=== PATIENT | male | born 1975 | race Caucasian/White ===

== ENCOUNTER 2017-04-30 00:18 | Inpatient (IN) | payer MEDICAID ==
[~2017-04-30] VITALS: Ht 177.8 cm; Wt 84.8 kg
[2017-04-30] VITALS (11 sets, daily range): BP systolic 114–161; BP diastolic 81–111
[2017-04-30] MEDS ORDERED: IV NORMAL SALINE 500 ML BAG IV ONE (00:30)
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
[2017-04-30 00:52] LABS: BASOPHILS % (AUTO) 0.6 % (0.0-2.0); EOSINOPHILS # (AUTO) 0.2 K/uL (0.0-0.7); EOSINOPHILS % (AUTO) 2.8 % (0.0-7.0); HEMATOCRIT 44.3 % (40-50); HEMOGLOBIN 14.9 G/DL (14.0-18.0); LYMPHOCYTES # (AUTO) 2.3 K/UL (0.8-4.8); LYMPHOCYTES % (AUTO) 30.9 % (20.5-51.5); MEAN CORPUSCULAR HEMOGLOBIN 29.6 UUG (27.0-31.0); MEAN CORPUSCULAR HGB CONC 34 g/dL (32.0-37.0); MEAN CORPUSCULAR VOLUME 87.6 FL (82.0-92.0); MONOCYTES # (AUTO) 0.5 K/UL (0.1-1.30); MONOCYTES % (AUTO) 6.6 % (0.0-11.0); NEUTROPHILS # (AUTO) 4.5 K/UL (1.8-8.9); NEUTROPHILS % (AUTO) 59.1 % (38.5-71.5); PLATELET COUNT (AUTO) 290 K/UL (150-450); RED BLOOD CELL COUNT(AUTO) 5.05 MIL/UL (4.7-6.1); WHITE BLOOD COUNT (AUTO) 7.5 K/UL (4.0-11.2)
[2017-04-30 00:52] LABS: *BILIRUBIN,URIN NEGATIVE (NEGATIVE); *BLOOD, URINE NEGATIVE (NEGATIVE); *CLARITY,URINE CLEAR (CLEAR); *COLOR,URINE DARK YELLOW (YELLOW); *KETONES,URINE NEGATIVE (NEGATIVE); *PROTEIN,URINE TRACE (NEGATIVE); *UROBILINOGEN,URINE 0.2 E.U./dl (NORMAL); LEUKOCYTE ESTERASE ,URINE NEGATIVE (NEGATIVE); NITRITE, URINE NEGATIVE (NEGATIVE); PH,URINE 5.5 (5.0-8.0); UGLUCOSE NEGATIVE (NEGATIVE)
[2017-04-30 00:53] LABS: CARBON DIOXIDE 31 mmol/L (21-32); CHLORIDE 106 mmol/L (98-107); CREATININE 1.2 mg/dL (0.6-1.3); GLUCOSE 110 mg/dL (74-106); POTASSIUM 3.3 mmol/L (3.5-5.1); UREA NITROGEN, BLOOD 14 mg/dL (7-18)
[2017-04-30 00:56] LABS: *AMPHETAMINE, URINE POSITIVE (NEGATIVE); *BARBITURATE, URINE NEGATIVE (NEGATIVE); *CANNABINOID, URINE POSITIVE (NEGATIVE); *COCCAINE, URINE NEGATIVE (NEGATIVE); *OPIATE, URINE NEGATIVE (NEGATIVE); *PHENCYCLIDINE SCREEN,URINE NEGATIVE (NEGATIVE)
[2017-04-30 01:00] LABS: ALANINE AMINOTRANSFERASE 31 U/L (16-63); ALKALINE PHOSPHATASE 86 U/L (50-136); ASPARTATE AMINOTRANSFERASE 25 U/L (15-37); BILIRUBIN,DIRECT 0.1 mg/dL (0.0-0.2); BILIRUBIN,TOTAL 0.5 mg/dL (0.2-1.0); TOTAL PROTEIN, SERUM 7.5 g/dL (6.4-8.2)
[2017-04-30] MEDS ORDERED: NALOXONE HCL 0.4 MG/ML AMPUL IV ONE (01:00)
[2017-04-30 01:01] LABS: BACTERIA,URINE MODERATE /HPF (NONE SEEN); MUCUS,URINE MODERATE /LPF (0-FEW); RBC,URINE 0-3 /HPF (0-3); SQUAMOUS EPITHELIAL CELL,UR MODERATE /HPF (NONE SEEN); WBC,URINE 0-3 /HPF (0-3)
[2017-04-30 01:02] LABS: ACETAMINOPHEN < 2.0 ug/mL (10-30)
[2017-04-30 01:04] LABS: ETHANOL < 3 MG/DL (0-0)
[2017-04-30] MEDS ORDERED: NALOXONE HCL 0.4 MG/ML AMPUL ONE (01:08)
--- NOTE | 2017-04-30 01:08 | NUR ---
Pt returned from CT via gurney. Pt remains unresponsive. IV established by EMS infiltrated and removed. Two new IVs established, refer to IV documentation. Airway remains patent. NSR on monitor. Awaiting results.
[2017-04-30] MEDS ORDERED: HYDROCODONE/APAP 5-325MG TABLET PO PRN (01:30)
[2017-04-30] MEDS ORDERED: ONDANSETRON 4 MG/2 ML VIAL IV PRN (01:30)
[2017-04-30] MEDS ORDERED: Z GUARD REMEDY PASTE 57 GM TUBE TOP PRN (01:30)
[2017-04-30] MEDS ORDERED: ASPIRIN 300 MG RECTAL SUPP RC ONE ×2 (01:30→01:35)
[2017-04-30] MEDS ORDERED: MAGNESIUM HYDROXIDE 30 ML LIQUID UDC PO PRN (01:30)
[2017-04-30] MEDS ORDERED: ACETAMINOPHEN 325 MG TABLET PO PRN (01:30)
--- NOTE | 2017-04-30 02:30 | NUR ---
Admitted a 41 years old male patient from ER via [facility] with DX: Altered Mental Status and Overdose. Doesn't open eyes to name or painful stimuli. Able to turn self to side and and said "cold." Assessment completed. See flow sheet for details. Addendum: 04/30/17 at 0343 by JEFFREY BURLESON RN Amended: Links added.
--- NOTE | 2017-04-30 03:00 | NUR ---
Warm blankets provided. BP diastole above 100. RR 8-10 but sat 99-100% on room air.
--- NOTE | 2017-04-30 03:15 | NUR ---
All of information re: PMH and nursing assessment are unobtainable due to patient's altered mentation. Will update when able.
--- NOTE | 2017-04-30 03:15 | NUR ---
Dr. Debi hargrove. Informed of patient's BP and respiratory status. Order received. Addendum: 04/30/17 at 0346 by JEFFREY BURLESON RN Amended: Links added.
[2017-04-30] MEDS: IV NS 1000 ML 1,000 ML IV PRN ×2 (03:26→12:29)
--- NOTE | 2017-04-30 04:30 | NUR ---
Patient woke up and very confused when attempted to check temperature rectally. Patient reoriented. Appears to have no recollection of the event. Denies suicidal thoughts. Addendum: 04/30/17 at 0523 by JEFFREY BURLESON RN Amended: Links added.
--- NOTE | 2017-04-30 05:00 | NUR ---
Discussed with patient current plan of care. Patient claims he uses these drugs on and off. Now slowly remembering what happened. NAD noted. Cooperative. Patient states he is not suicidal. Addendum: 04/30/17 at 0526 by JEFFREY BURLESON RN Amended: Links added.
--- NOTE | 2017-04-30 05:30 | NUR ---
Attempted to update medical history but patient is difficult to arouse again. Eupneic. No EKG changes.
[2017-04-30] MEDS ORDERED: BLOOD SUGAR DIAGNOSTIC 1 EACH STRIP VI SCH ×2 (06:00→16:30)
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
--- NOTE | 2017-04-30 07:25 | NUR ---
Report given to CYNDY GAGAN Frias. Patient AAO; NAD noted.
--- NOTE | 2017-04-30 07:40 | NUR ---
Transferred to [facility]. Ambulated without problems. All belongings with patient upon transfer.
--- NOTE | 2017-04-30 07:40 | NUR ---
PATIENT TRANSFERRED FROM CCU TO ROOM 205. SBAR REPORT RECEIVED FROM RN. PATIENT ALERT AWAKE AND ORIENTED X4. DENIED PAIN. DENIED N/V. IVF RUNNING. IV SITE INTACT AND PATENT.
[2017-04-30] MEDS ORDERED: POTASSIUM CHLORIDE 20 MEQ TAB.PRT.SR PO ONE (13:45)
--- NOTE | 2017-04-30 14:32 | NUR ---
PARTICIPATED WITH PT/OT AND TOLERATED WELL. [facility].
--- NOTE | 2017-04-30 15:17 | NUR ---
The patient will be discharged today back home [[address] [place] [address]] per Dell Yost NP. He is aware and in agreement of his discharge and will arrange for someone to pick him up. Provided him with a list of Detox facilities in the [facility], [facility] and [facility]. He was very thankful. His RN, Altagracia, is aware of his discharge plan.
--- NOTE | 2017-04-30 15:21 | NUR ---
ORDERS RECEIVED TO Gerald/Tiffani KENNEDY.
--- NOTE | 2017-04-30 18:22 | NUR ---
DISCHARGING PATIENT HOME IN A STABLE CONDITION. AAOX4. AMBULATORY AND INDEPENDENT WITH ADLs. VSS. DISCHARGE INSTRUCTIONS PROVIDED. NO NEW PRESCRIPTIONS GIVEN. LIST OF BELONGINGS SIGNED AND ALL WAS TAKEN. IVs REMOVED, PRESSURE APPLIED AND HEMOSTASIS ACHIEVED. PATIENT LEAVING VIA PRIVATE CAR ACCOMPANIED BY HIS FRIEND.
== END 2017-04-30 22:58 | disposition home or self-care (01) | DRG 812 ==
LOC: ER 00:25 → CCU 01:00 → TELE-TD 07:40
PROVIDERS: ADMIT Family Medicine; ATTEND Contractor
DX: T41.291A Poisoning by other general anesthetics, accidental (unintentional), initial encounter (principal); G92 Toxic encephalopathy; E87.0 Hyperosmolality and hypernatremia; E86.9 Volume depletion, unspecified; F15.10 Other stimulant abuse, uncomplicated; Z72.0 Tobacco use; E87.6 Hypokalemia; F12.129 Cannabis abuse with intoxication, unspecified; F19.10 Other psychoactive substance abuse, uncomplicated; Y92.481 Parking lot as the place of occurrence of the external cause
CPT/HCPCS: 36415; 51702; 70030-TC; 70450; 71010; 80307; 85025; 85730; 92523; 92610; 93005; 97161; G0480; G0480-TC; J2310; J7030